=== PATIENT | female | born 1935 | race African-American/Black ===

== ENCOUNTER 2017-09-11 11:12 | Inpatient (IN) | payer MEDICARE ==
[~2017-09-11] VITALS: Ht 167.6 cm; Wt 69.6 kg
[~2017-09-11 11:12] MED LIST: DOCU100C28 PO; FAMO-63 PO; HYDR-2678 PO; HYDR25TA PO; METO100T7 PO; PRED20TA PO
[2017-09-11 12:32] LABS: BASO # 0.1 x10^3/uL (0.0-0.2); BASO % 1 % (0-3); EOS % 5 % (0-3); HEMOGLOBIN 12.5 g/dL (12.0-15.5); LYMPH # 1.7 x10^3/uL (1.0-4.8); LYMPH % 28 % (24-48); MEAN CORPUSCULAR HEMOGLOBIN 31 pg (25-35); MEAN CORPUSCULAR HGB CONC 33 g/dL (31-37); MEAN CORPUSCULAR VOLUME 96 fL (79-100); MONO % 12 % (0-9); NEUT % 54 % (31-73); PLATELET COUNT 378 x10^3/uL (140-400); RED BLOOD COUNT 3.98 x10^6/uL (3.50-5.40); RED CELL DISTRIBUTION WIDTH 14.6 % (11.5-14.5); WHITE BLOOD COUNT 6.2 x10^3/uL (4.0-11.0)
[2017-09-11 12:40] LABS: CALCIUM 8.9 mg/dL (8.5-10.1); CREATININE 0.9 mg/dL (0.6-1.0); GFR 72.7; POTASSIUM 3.7 mmol/L (3.5-5.1)
[2017-09-11 12:55] LABS: ALBUMIN 3.2 g/dL (3.4-5.0); ALBUMIN/GLOBULIN RATIO 0.7 (1.0-1.7); TOTAL BILIRUBIN 0.3 mg/dL (0.2-1.0); TOTAL PROTEIN 7.6 g/dL (6.4-8.2)
[2017-09-11] MEDS ORDERED: CLINDAMYCIN 300 MG IV ONE (13:45)
[2017-09-11] MEDS ORDERED: ONDANSETRON PF 4 MG/2 ML VIAL. IV PRN (14:15)
[2017-09-11] MEDS ORDERED: MORPHINE SULFATE 2 MG/ML DISP.SYRIN. IV PRN (14:15)
[2017-09-11 15:00] VITALS: BP 186/66
--- NOTE | 2017-09-11 17:06 | PHYS DOC ---
Past Medical History Past Medical History: Cancer, Hypertension Additional Past Medical Histor: BREAST CA Past Surgical History: Other Additional Past Surgical Histo: R MASTECTOMY Alcohol Use: None Drug Use: None Adult General Chief Complaint Chief Complaint: BURN/SMOKE INHALATION HPI HPI Patient is a 82 year old female who presents with a large burn area to the dorsal aspect of her right foot. She was boiling water on Thanksgiving when the pot of boiling water dropped spilling boiling liquid onto her foot. She was seen by her primary care provider who described a topical ointment as well as an antibiotic. The patient states that she is unsure of what the antibiotic is that she has been taking. She does say that it does upset her stomach. The wound has been draining and crusting. She is having pain when she steps down and applies pressure to her foot now. Review of Systems Review of Systems Constitutional: Denies fever or chills [] Respiratory: Denies cough or shortness of breath [] Cardiovascular: No additional information not addressed in HPI [] Musculoskeletal: Denies back pain or joint pain [] Integument: See history of present illness Neurologic: Denies headache, focal weakness or sensory changes [] Endocrine: Denies polyuria or polydipsia [] All other systems were reviewed and found to be within normal limits, except as documented in this note. Allergies Allergies Allergies Coded Allergies Type Severity Reaction Last Updated Verified aspirin Allergy Mild vomit 05/29/15 No Physical Exam Physical Exam Constitutional: Well developed, well nourished, no acute distress, non-toxic appearance. [] Cardiovascular:Heart rate regular rhythm, no murmur [] Lungs & Thorax: Bilateral breath sounds clear to auscultation [] Abdomen: Bowel sounds normal, soft, no tenderness, no masses, no pulsatile masses. [] Skin: 3.5 cm x 1.5 cm wound to the dorsal aspect of the right foot with crusting , erythema and mild edema, the proximal wound is reddened with some drainage, there is significant tissue loss with some granulation tissue starting to form Extremities: No tenderness, no cyanosis, no clubbing, ROM intact, no edema. [] Neurologic: Alert and oriented X 3, normal motor function, normal sensory function, no focal deficits noted. [] Psychologic: Affect normal, judgement normal, mood normal. [] Current Patient Data Vital Signs Vital Signs Date Time Temp Pulse Resp B/P (MAP) Pulse Ox O2 Delivery O2 Flow Rate FiO2 09/11/17 12:14 78 18 168/70 (102) 99 Room Air 09/11/17 11:31 97.6 97.6 Lab Values Laboratory Tests Test 09/11/17 12:20 White Blood Count 6.2 x10^3/uL (4.0-11.0) Red Blood Count 3.98 x10^6/uL (3.50-5.40) Hemoglobin 12.5 g/dL (12.0-15.5) Hematocrit 38.0 % (36.0-47.0) Mean Corpuscular Volume 96 fL (79-100) Mean Corpuscular Hemoglobin 31 pg (25-35) Mean Corpuscular Hemoglobin Concent 33 g/dL (31-37) Red Cell Distribution Width 14.6 % (11.5-14.5) H Platelet Count 378 x10^3/uL (140-400) Neutrophils (%) (Auto) 54 % (31-73) Lymphocytes (%) (Auto) 28 % (24-48) Monocytes (%) (Auto) 12 % (0-9) H Eosinophils (%) (Auto) 5 % (0-3) H Basophils (%) (Auto) 1 % (0-3) Neutrophils # (Auto) 3.4 x10^3uL (1.8-7.7) Lymphocytes # (Auto) 1.7 x10^3/uL (1.0-4.8) Monocytes # (Auto) 0.7 x10^3/uL (0.0-1.1) Eosinophils # (Auto) 0.3 x10^3/uL (0.0-0.7) Basophils # (Auto) 0.1 x10^3/uL (0.0-0.2) Sodium Level 141 mmol/L (136-145) Potassium Level 3.7 mmol/L (3.5-5.1) Chloride Level 103 mmol/L (98-107) Carbon Dioxide Level 31 mmol/L (21-32) Anion Gap 7 (6-14) Blood Urea Nitrogen 12 mg/dL (7-20) Creatinine 0.9 mg/dL (0.6-1.0) Estimated GFR (Cockcroft-Gault) 72.7 BUN/Creatinine Ratio 13 (6-20) Glucose Level 95 mg/dL (70-99) Calcium Level 8.9 mg/dL (8.5-10.1) Total Bilirubin 0.3 mg/dL (0.2-1.0) Aspartate Amino Transferase (AST) 20 U/L (15-37) Alanine Aminotransferase (ALT) 18 U/L (14-59) Alkaline Phosphatase 108 U/L (46-116) Total Protein 7.6 g/dL (6.4-8.2) Albumin 3.2 g/dL (3.4-5.0) L Albumin/Globulin Ratio 0.7 (1.0-1.7) L Laboratory Tests 09/11/17 12:20 Laboratory Tests 09/11/17 12:20 Microbiology 09/11/17 Gram Stain - Final, Complete EKG EKG [] Radiology/Procedures Radiology/Procedures [] Course & Med Decision Making Course & Med Decision Making Pertinent Labs and Imaging studies reviewed. (See chart for details) []1. Burn Patient is being admitted to Dr. Davis for further evaluation and treatment of this burn. She was given IV antibiotics in the emergency department to begin her treatment. Dragon Disclaimer Dragon Disclaimer This electronic medical record was generated, in whole or in part, using a voice recognition dictation system. Departure Departure Impression: Primary Impression: Burn Disposition: 09 ADMITTED INPATIENT Condition: STABLE Referrals: ROSELIA DAVIS MD (PCP) Additional Instructions: Patient has been admitted for further inpatient evaluation and treatment of this burn. CORY ZAYAS APRN Sep 11, 2017 17:06
[2017-09-11 17:16] VITALS: BP 172/80
[2017-09-11] MEDS: hydrALAZINE 10 MG TABLET PO PRN (17:21)
[2017-09-11 19:00] VITALS: BP 149/65
[2017-09-11 23:30] VITALS: BP 152/60
[2017-09-12 03:00] VITALS: BP 136/88
[2017-09-12] MEDS: CLINDAMYCIN 300 MG IV SCH ×3 (06:06→21:06)
[2017-09-12 07:00] VITALS: BP 159/65
[2017-09-12] MEDS: FAMOTIDINE 20 MG TABLET. PO SCH (08:48)
[2017-09-12] MEDS: hydrALAZINE 10 MG TABLET PO PRN ×3 (08:48→21:06)
[2017-09-12] MEDS: DOCUSATE SODIUM 100 MG CAPSULE. PO SCH ×2 (08:48→21:04)
[2017-09-12] MEDS: hydrOXYzine PAMOATE 25 MG CAPSULE PO SCH ×3 (08:49→21:12)
[2017-09-12] MEDS: METOPROLOL TART IMMED RELEASE 50 MG TABLET. PO SCH ×2 (08:49→21:04)
--- NOTE | 2017-09-12 10:15 | PDOC ---
Provider Note Provider Note Pt seen.H&P dictated. #[id number] ROSELIA FLOYD MD Sep 12, 2017 10:15
--- NOTE | 2017-09-12 10:28 | HP ---
ADMIT DATE: 09/11/2017 LOCATION: 648. REASON FOR ADMISSION TO THE HOSPITAL: Grease burn to the right foot with cellulitis and worsening ulceration in the right foot with swelling. HISTORY OF PRESENT ILLNESS: The patient is an 82-year-old female with history of sarcoidosis and she had been cooking over weekend and then she had a grease burn, oil on the right foot, came to the office, was seen, was given Xeroform and in the meantime, this was last week, her leg was more swollen, the skin was peeling off more and more pain. Came to the Emergency Room, was admitted with possible cellulitis, edema and not improving, and was given clindamycin. Wound care was consulted, may need surgical debridement. PAST MEDICAL HISTORY: History of sarcoidosis, hypertension, anxiety, chronic pain. PAST SURGICAL HISTORY: Had a lung biopsy, sarcoidosis very indolent. ALLERGIES: ASPIRIN CAUSES HIVES. MEDICATIONS AT HOME: Colace, Pepcid, hydroxyzine, metoprolol and Percocet for pain. PERSONAL HISTORY: Denies smoking, alcohol, drug abuse. SOCIAL HISTORY: Lives at home with her . FAMILY HISTORY: Unremarkable. REVIEW OF SYSTEMS: CARDIAC: No chest pain. LUNGS: No cough, sputum. GASTROINTESTINAL: No nausea. EXTREMITIES: Has pain in right foot, swelling and got progressive worsening. PHYSICAL EXAMINATION: GENERAL: Pleasant, not in any distress. VITAL SIGNS: Temperature 97, pulse 87, respirations 18, blood pressure 167/80, 99% on room air. HEENT: Head is atraumatic. Pupils equal. Oral cavity, no teeth. NECK: Supple. Thyroid not enlarged. JVD not elevated. CHEST: Symmetrical. CARDIOVASCULAR: S1, S2. LUNGS: Clear to auscultation. ABDOMEN: Soft, bowel sounds present, no mass palpable. EXTERNAL GENITALIA: No Pascal. RECTAL: Deferred. EXTREMITIES: Right leg is swollen from the foot up to below the knee, has extensive skin ulceration with necrosis and some granulation tissue dorsal aspect of the right foot, covering most of the dorsal aspect of the foot. Left leg, no swelling. FINAL IMPRESSION: 1. Hot grease burn of the right foot with ulceration. 2. Failure of outpatient improvement. 3. Possible cellulitis. 4. Sarcoidosis. 5. Edema, right leg, rule out deep venous thrombosis. PLAN: At this time, was admit to hospital. Venous Doppler, Wound Care consult, needs surgical debridement, IV clindamycin and see how the patient's condition improves, elevation, compression wraps. ROSELIA FLOYD MD DR: SANDER/corey JOB#: [id number] / [id number]
[2017-09-12 10:49] VITALS: BP 144/78
[2017-09-12] MEDS: silver sulfADIAZINE 1% CREAM 25GM TUBE. TP SCH ×2 (11:00→21:06)
--- NOTE | 2017-09-12 13:36 | RAD ---
Clinical Indication: Right lower extremity swelling Technique: Study is dated September 12, 2017. Grayscale, color flow and spectral waveform analysis was performed of the right lower extremity with and without compression. Findings: There is normal compressibility of all visualized vein segments. No evidence of DVT is present on grayscale or color images. There is normal phasicity of waveform. There is normal augmentation. Impression: No evidence of deep vein thrombosis.
--- NOTE | 2017-09-12 14:16 | PDOC2 ---
CONSULT Date of Consult Date of Consult DATE: 09/12/17 TIME: 14:04 Reason for Consult Reason for Consult: Right foot burn Referring Physician Referring Physician: Dr. adames Identification/Chief Complaint Chief Complaint Right foot burn with associated cellulitis prompting hospitalization Problems: Source Source: Chart review, Patient History of Present Illness Reason for Visit: This is a very pleasant 82-year-old lady who sustained martino to the dorsum and medial aspect of the right foot roughly 2 weeks ago. This was result of hot grease. She developed increased pain, edema and concern for cellulitis and was subsequent admitted through the emergency department. She does not have significant history of ulceration or wounding. She does not report numbness, paresthesias or motor weakness in the affected distal extremity. Past Medical History Cardiovascular: HTN Past Surgical History Past Surgical History: Other (lung biopsy) Family History Family History: Other Social History ALCOHOL: none Drugs: None Lives: with Family Current Problem List Problem List Second-degree burn roughly 3% body surface area left foot Current Medications Current Medications Current Medications Clindamycin Phosphate 50 ml @ 100 mls/hr 1X ONCE IV Last administered on 14:54; Start 09/11/17 at 13:45; Stop 09/11/17 at 14:14; Status DC Ondansetron HCl (Zofran) 4 mg PRN Q8HRS PRN IV NAUSEA/VOMITING; Start at 14:15; Stop 09/12/17 at 14:14 Morphine Sulfate 2 mg PRN Q2HR PRN IV PAIN; Start 09/11/17 at 14:15; Stop 09/17 at 14:14 Hydralazine HCl (Apresoline) 10 mg PRN Q6HRS PRN PO ELEVATED BP, SEE COMMENTS Last administered on 09/12/17 08:48; Start 09/11/17 at 15:45 Docusate Sodium (Colace) 100 mg BID PO Last administered on 09/12/17 08:48; Start 09/12/17 at 09:00 Famotidine (Pepcid) 20 mg DAILY PO Last administered on 09/12/17 08:48; Start 09/12/17 at 09:00 Hydroxyzine Pamoate (Vistaril) 25 mg TID PO ; Start 09/12/17 at 09:00 Metoprolol Tartrate (Lopressor) 100 mg BID PO ; Start 09/12/17 at 09:00 Clindamycin Phosphate 50 ml @ 100 mls/hr Q8HRS IV Last administered on 06:06; Start 09/12/17 at 06:00 Silver Sulfadiazine (Silvadene) 1 rashmi BID TP Last administered on 09/12/17t 11 :00; Start 09/12/17 at 11:00 Acetaminophen/ Hydrocodone Bitart (Lortab 5/325) 1 tab PRN Q4HRS PRN PO PAIN; Start 09/12/17 at 10:15 Lactobacillus Rhamnosus (Culturelle) 1 cap BID PO ; Start 09/12/17 at 21:00 Active Scripts Active Hydroxyzine Hcl 25 Mg Tablet 1 Tab PO TID Pepcid (Famotidine) 20 Mg Tablet 20 Mg PO BID 5 Days Prednisone 20 Mg Tablet 2 Tab PO DAILY Docusate Sodium 100 Mg Capsule 1 Cap PO BID Reported Metoprolol Tartrate 100 Mg Tablet 1 Tab PO BID Allergies Allergies: Coded Allergies: aspirin (Unverified Allergy, Mild, vomit, 05/29/15) Pt states she vomits when she takes asprin ROS Musculoskeletal: Yes Joint Stiffness (large joint arthralgias are described) Physical Exam General: Alert, Oriented X3, Cooperative, No acute distress HEENT: Atraumatic, PERRLA, EOMI, Mucous membr. moist/pink Lungs: Clear to auscultation, Normal air movement Heart: Regular rate Abdomen: Soft, No tenderness Extremities: No clubbing, No cyanosis, No edema, Other (Quanta Lj is 1.07) Neuro: Normal speech, Sensation intact Psych/Mental Status: Mental status NL, Mood NL MUSCULOSKELETAL: Not examined Vitals VITALS Vital Signs Date Time Temp Pulse Resp B/P (MAP) Pulse Ox O2 Delivery O2 Flow Rate FiO2 09/12/17 10:49 98.0 99 16 144/78 (100) 96 Room Air 98.0 Labs Labs Laboratory Tests Test 09/11/17 12:20 White Blood Count 6.2 x10^3/uL (4.0-11.0) Red Blood Count 3.98 x10^6/uL (3.50-5.40) Hemoglobin 12.5 g/dL (12.0-15.5) Hematocrit 38.0 % (36.0-47.0) Mean Corpuscular Volume 96 fL (79-100) Mean Corpuscular Hemoglobin 31 pg (25-35) Mean Corpuscular Hemoglobin Concent 33 g/dL (31-37) Red Cell Distribution Width 14.6 % (11.5-14.5) Platelet Count 378 x10^3/uL (140-400) Neutrophils (%) (Auto) 54 % (31-73) Lymphocytes (%) (Auto) 28 % (24-48) Monocytes (%) (Auto) 12 % (0-9) Eosinophils (%) (Auto) 5 % (0-3) Basophils (%) (Auto) 1 % (0-3) Neutrophils # (Auto) 3.4 x10^3uL (1.8-7.7) Lymphocytes # (Auto) 1.7 x10^3/uL (1.0-4.8) Monocytes # (Auto) 0.7 x10^3/uL (0.0-1.1) Eosinophils # (Auto) 0.3 x10^3/uL (0.0-0.7) Basophils # (Auto) 0.1 x10^3/uL (0.0-0.2) Sodium Level 141 mmol/L (136-145) Potassium Level 3.7 mmol/L (3.5-5.1) Chloride Level 103 mmol/L (98-107) Carbon Dioxide Level 31 mmol/L (21-32) Anion Gap 7 (6-14) Blood Urea Nitrogen 12 mg/dL (7-20) Creatinine 0.9 mg/dL (0.6-1.0) Estimated GFR (Cockcroft-Gault) 72.7 BUN/Creatinine Ratio 13 (6-20) Glucose Level 95 mg/dL (70-99) Calcium Level 8.9 mg/dL (8.5-10.1) Total Bilirubin 0.3 mg/dL (0.2-1.0) Aspartate Amino Transf (AST/SGOT) 20 U/L (15-37) Alanine Aminotransferase (ALT/SGPT) 18 U/L (14-59) Alkaline Phosphatase 108 U/L (46-116) Total Protein 7.6 g/dL (6.4-8.2) Albumin 3.2 g/dL (3.4-5.0) Albumin/Globulin Ratio 0.7 (1.0-1.7) Assessment/Plan Assessment/Plan Second degree burn to dorsum of right foot of roughly 3% body surface area. Debridement note: Following informed consent of the patient and utilizing topical lidocaine application anesthesia, the patient underwent debridement of area of second-degree burn. Total area debrided was roughly 56.7 cm. This required the removal of nonviable tissue only. This utilized forceps and scissors. This was well tolerated by the patient. Slough was then removed utilizing 15 blade scalpel. This constituted a selective, non-surgical debridement of nonviable tissue. Following debridement application of silver sulfadiazine ointment was utilized. Recommendation: Silvadene ointment can be utilized on a 2 time daily basis. We will be happy to follow up with the patient in clinic if needed. Silvadene will likely be best utilized in the immediate hospitalization. With contact layer thereafter on an every 2-3 day basis. Thank you very much for allowing us to participate in Mrs. Taveras's care. MARTHA BAPTISTE DO Sep 12, 2017 14:16
[2017-09-12 15:00] VITALS: BP 173/75
[2017-09-12 19:00] VITALS: BP 137/62
[2017-09-12] MEDS: HYDROcodone/APAP 5/325MG 1 TAB TABLET PO PRN (21:05)
[2017-09-12] MEDS: LACTOBACILLUS RHAMNOSUS GG 1 CAPSULE. PO SCH (21:06)
[2017-09-12 23:06] VITALS: BP 117/60
[2017-09-13 03:00] VITALS: BP 148/89
[2017-09-13] MEDS: CLINDAMYCIN 300 MG IV SCH (05:43)
[2017-09-13 07:00] VITALS: BP 148/94
[2017-09-13] MEDS: silver sulfADIAZINE 1% CREAM 25GM TUBE. TP SCH (09:00)
[2017-09-13] MEDS: hydrOXYzine PAMOATE 25 MG CAPSULE PO SCH (09:01)
[2017-09-13] MEDS: FAMOTIDINE 20 MG TABLET. PO SCH (09:01)
[2017-09-13] MEDS: LACTOBACILLUS RHAMNOSUS GG 1 CAPSULE. PO SCH (09:01)
[2017-09-13] MEDS: DOCUSATE SODIUM 100 MG CAPSULE. PO SCH (09:01)
[2017-09-13] MEDS: METOPROLOL TART IMMED RELEASE 50 MG TABLET. PO SCH (09:02)
[2017-09-13] MEDS: HYDROcodone/APAP 5/325MG 1 TAB TABLET PO PRN (09:05)
--- NOTE | 2017-09-13 09:40 | PDOC ---
PROGRESS NOTES Subjective Subjective feels better ,wanting to go home Objective Objective Vital Signs Date Time Temp Pulse Resp B/P (MAP) Pulse Ox O2 Delivery O2 Flow Rate FiO2 09/13/17 09:05 97 Room Air 09/13/17 09:02 80 148/94 09/13/17 07:00 98.2 18 98.2 Intake and Output 09/13/17 07:00 Intake Total 1000 ml Output Total 1250 ml Balance -250 ml Intake Oral 1000 ml Output Urine Total 1250 ml # Bowel Movements 1 Physical Exam Abdomen: Soft, No tenderness Heart: Regular rate Extremities: No clubbing, No cyanosis, No edema, Other (Quanta Lj is 1.07) General: Alert, Oriented X3, Cooperative, No acute distress HEENT: Atraumatic, PERRLA, EOMI, Mucous membr. moist/pink Lungs: Clear to auscultation, Normal air movement MUSCULOSKELETAL: Not examined Neuro: Normal speech, Sensation intact Psych/Mental Status: Mental status NL, Mood NL COMMENT rt foot burn ulcer dorsal aspect Assessment Assessment FINAL IMPRESSION: 1. Hot grease burn of the right foot with ulceration. 2. Failure of outpatient improvement. 3. Possible cellulitis. 4. Sarcoidosis. 5. Edema, right leg, rule out deep venous thrombosis. PLAN: bedside debridement done yesterday, venous doppler neg for dvt. labs good. d/c home with home health for dressing f/u wound care ctr. po keflex for 1 week and Silvadene for wound care. At this time, was admit to hospital. Venous Doppler, Wound Care consult, needs surgical debridement, IV clindamycin and see how the patient's condition improves, elevation, compression wraps. Problems: Comment Review of Relevant I have reviewed the following items marisa (where applicable) has been applied. Labs Microbiology 09/11/17 Gram Stain - Final, Complete Medications Current Medications Acetaminophen/ Hydrocodone Bitart (Lortab 5/325) 1 tab PRN Q4HRS PRN PO PAIN Last administered on 09/13/17 09:05; Start 09/12/17 at 10:15 Lactobacillus Rhamnosus (Culturelle) 1 cap BID PO Last administered on 09:01; Start 09/12/17 at 21:00 Silver Sulfadiazine (Silvadene) 1 rashmi BID TP Last administered on 12/12/17at 21 :06; Start 09/12/17 at 11:00 Vitals/I & O Vital Sign - Last 24 Hours 09/12/17 09/12/17 09/12/17 09/12/17 10:49 15:00 16:45 19:00 Temp 98.0 98.0 98.6 98.0 98.0 98.6 Pulse 99 88 92 110 Resp 16 16 17 B/P (MAP) 144/78 (100) 173/75 (107) 189/89 137/62 (87) Pulse Ox 96 99 96 O2 Delivery Room Air Room Air Room Air 09/12/17 09/12/17 09/12/17 09/12/17 19:00 21:04 21:05 21:06 Pulse 110 110 B/P (MAP) 137/62 137/62 Pulse Ox 96 O2 Delivery Room Air Room Air 09/12/17 09/12/17 09/13/17 09/13/17 21:58 23:06 03:00 07:00 Temp 98.8 98.4 98.2 98.8 98.4 98.2 Pulse 78 78 80 Resp 18 18 18 B/P (MAP) 117/60 (79) 148/89 (108) 148/94 (112) Pulse Ox 96 95 98 97 O2 Delivery Room Air Room Air Room Air Room Air 09/13/17 09/13/17 09:02 09:05 Pulse 80 B/P (MAP) 148/94 Pulse Ox 97 O2 Delivery Room Air Intake and Output 09/12/17 09/12/17 09/13/17 15:00 23:00 07:00 Intake Total 500 ml 500 ml Output Total 900 ml 350 ml Balance -400 ml 150 ml ROSELIA FLOYD MD Sep 13, 2017 09:40
[2017-09-13] MEDS ORDERED: CEPH-264 PO (09:43)
[2017-09-13] MEDS ORDERED: SILV25CR7 TP (09:43)
[2017-09-13 11:00] VITALS: BP 143/65
--- NOTE | 2017-09-14 15:34 | PDOC ---
Provider Note Provider Note Discharge summary dictated. #[id number] ROSELIA FLOYD MD Sep 14, 2017 15:34
--- NOTE | 2017-09-14 18:37 | DS ---
DATE OF DISCHARGE: 09/13/2017 CONSULTATION: Dr. Ron [facility]. PROCEDURE DONE: Bedside debridement of the wound, right foot. COMPLICATIONS NOTED: None. HOSPITAL COURSE: The patient is an 82-year-old female. Over the weekend, she had a hot grease burn over the right foot and the patient has noticed more pain and swelling, came to the Emergency Room. Venous Doppler was negative for DVT. Had a scalding burn on the right foot with some ulceration and necrosis. Wound Care was consulted. A bedside debridement was done, was put on Silvadene and she was discharged. FINAL DIAGNOSES: 1. Hot grease burn to right foot. 2. Debridement of the ulcer was done. 3. Right leg swelling, negative for deep venous thrombosis. 4. Chronic sarcoidosis, stable. 5. Hypertension, stable. DISPOSITION: Home with home health and Silvadene. Follow up with the [facility]. ROSELIA FLOYD MD DR: SANDER/corey JOB#: [id number] / [id number]
== END 2017-09-13 16:07 | disposition home health service (06) | DRG 935 ==
LOC: ER 11:12 → 6 SOUTH 13:33
PROVIDERS: ADMIT Internal Medicine; ATTEND Internal Medicine
PROC: 0JBQ0ZZ Excision of Right Foot Subcutaneous Tissue and Fascia, Open Approach (ICD-10-PCS; principal; 2017-09-11)
DX: T25.221A Burn of second degree of right foot, initial encounter (principal); L03.115 Cellulitis of right lower limb; L97.519 Non-pressure chronic ulcer of other part of right foot with unspecified severity; J70.5 Respiratory conditions due to smoke inhalation; T31.0 Burns involving less than 10% of body surface; D86.9 Sarcoidosis, unspecified; F41.9 Anxiety disorder, unspecified; G89.29 Other chronic pain; I10 Essential (primary) hypertension; T59.811A Toxic effect of smoke, accidental (unintentional), initial encounter; X10.2XXA Contact with fats and cooking oils, initial encounter; Y93.G3 Activity, cooking and baking; Z85.3 Personal history of malignant neoplasm of breast; Z88.8 Allergy status to other drugs, medicaments and biological substances; Y92.090 Kitchen in other non-institutional residence as the place of occurrence of the external cause; Y99.8 Other external cause status; Z90.11 Acquired absence of right breast and nipple
CPT/HCPCS: 36415; 80053; 85025; 87071; 87075; 87205; 93971; J3490; Q0177; 99285-25

== ENCOUNTER 2018-03-26 11:41 | Emergency (ER) | payer OTHER ==
[2018-03-26 12:54] LABS: ADD MAN DIFF? NO
[2018-03-26 13:00] LABS: BASO % 1 % (0-3); EOS # 0.1 x10^3/uL (0.0-0.7); EOS % 2 % (0-3); HEMATOCRIT 40.8 % (36.0-47.0); HEMOGLOBIN 13.9 g/dL (12.0-15.5); LYMPH # 1.8 x10^3/uL (1.0-4.8); LYMPH % 42 % (24-48); MEAN CORPUSCULAR HEMOGLOBIN 32 pg (25-35); MEAN CORPUSCULAR HGB CONC 34 g/dL (31-37); MEAN CORPUSCULAR VOLUME 95 fL (79-100); MONO # 0.5 x10^3/uL (0.0-1.1); MONO % 13 % (0-9); NEUT # 1.8 x10^3uL (1.8-7.7); NEUT % 43 % (31-73); PLATELET COUNT 260 x10^3/uL (140-400); RED BLOOD COUNT 4.32 x10^6/uL (3.50-5.40); RED CELL DISTRIBUTION WIDTH 13.4 % (11.5-14.5); WHITE BLOOD COUNT 4.2 x10^3/uL (4.0-11.0)
[2018-03-26] MEDS: IOHEXOL 300 MG/ML 100ML VIAL. IV (13:00)
[2018-03-26] MEDS ORDERED: CONTRAST GIVEN. MC (13:00)
[2018-03-26] MEDS: IOHEXOL 240 MG/ML 50ML VIAL. PO (13:00)
[2018-03-26 13:06] LABS: ANION GAP 4 (6-14); BLOOD UREA NITROGEN 22 mg/dL (7-20); BUN/CREATININE RATIO 18 (6-20); CALCIUM 9.5 mg/dL (8.5-10.1); CARBON DIOXIDE 36 mmol/L (21-32); CHLORIDE 94 mmol/L (98-107); CREATININE 1.2 mg/dL (0.6-1.0); GLUCOSE 119 mg/dL (70-99); POTASSIUM 4.3 mmol/L (3.5-5.1); SODIUM 134 mmol/L (136-145)
[2018-03-26 13:11] LABS: ALBUMIN 3.9 g/dL (3.4-5.0); ALBUMIN/GLOBULIN RATIO 1.2 (1.0-1.7); ALK PHOS 75 U/L (46-116); ALT (SGPT) 18 U/L (14-59); AST (SGOT) 21 U/L (15-37); LIPASE 168 U/L (73-393); MAGNESIUM 2.1 mg/dL (1.8-2.4); TOTAL BILIRUBIN 0.4 mg/dL (0.2-1.0); TOTAL PROTEIN 7.1 g/dL (6.4-8.2)
[2018-03-26] MEDS: IV NORMAL SALINE 500ML BAG 500 ML IV (13:15)
[2018-03-26 13:17] LABS: NT-PRO BNP 28 pg/mL (0-449)
[2018-03-26 13:18] LABS: FREE T4 1.18 ng/dL (0.76-1.46); TROPONINI < 0.017 ng/mL (0.000-0.055)
[2018-03-26 13:18] LABS: THYROID STIM HORMONE (TSH) 0.902 uIU/mL (0.358-3.74)
[2018-03-26 13:19] LABS: BILIRUBIN,URINE MODERATE (NEG); CLARITY,URINE CLEAR; COLOR,URINE YELLOW; GLUCOSE,URINE NEGATIVE (NEG); NITRITE,URINE NEGATIVE (NEG); PROTEIN,URINE NEGATIVE (NEG-TRACE)
[2018-03-26 13:38] LABS: BACTERIA,URINE 0 /HPF (0-FEW); HYALINE CASTS, URINE MODERATE /HPF; RBC,URINE 0 /HPF (0-2)
[2018-03-26] MEDS: IV NORMAL SALINE 1000ML BAG 1,000 ML IV (14:38)
== END 2018-03-26 15:38 | disposition home or self-care (01) ==
LOC: ER 11:41
DX: K29.70 Gastritis, unspecified, without bleeding (principal); N39.0 Urinary tract infection, site not specified; R42 Dizziness and giddiness; R53.83 Other fatigue
CPT/HCPCS: 36415; 71260; 74177; 80053; 81001; 83690; 83735; 83880; 84439; 84443; 84484; 85025; 87086; 93005; 96360; 96361; 99285-25; J7030; J7040; Q9966; Q9967

== ENCOUNTER 2018-04-10 10:55 | Emergency (ER) | payer OTHER ==
[2018-04-10 11:56] LABS: ADD MAN DIFF? NO
[2018-04-10 12:01] LABS: BASO % 1 % (0-3); EOS # 0.1 x10^3/uL (0.0-0.7); EOS % 3 % (0-3); HEMATOCRIT 40.3 % (36.0-47.0); HEMOGLOBIN 13.8 g/dL (12.0-15.5); LYMPH # 1.3 x10^3/uL (1.0-4.8); LYMPH % 35 % (24-48); MEAN CORPUSCULAR HEMOGLOBIN 32 pg (25-35); MEAN CORPUSCULAR HGB CONC 34 g/dL (31-37); MEAN CORPUSCULAR VOLUME 94 fL (79-100); MONO # 0.4 x10^3/uL (0.0-1.1); MONO % 12 % (0-9); NEUT # 1.8 x10^3uL (1.8-7.7); NEUT % 49 % (31-73); PLATELET COUNT 308 x10^3/uL (140-400); RED BLOOD COUNT 4.28 x10^6/uL (3.50-5.40); RED CELL DISTRIBUTION WIDTH 13.6 % (11.5-14.5); WHITE BLOOD COUNT 3.6 x10^3/uL (4.0-11.0)
[2018-04-10 12:03] LABS: BILIRUBIN,URINE SMALL (NEG); CLARITY,URINE CLEAR; COLOR,URINE YELLOW; GLUCOSE,URINE NEGATIVE (NEG); NITRITE,URINE NEGATIVE (NEG); PROTEIN,URINE NEGATIVE (NEG-TRACE)
[2018-04-10 12:15] LABS: PROTHROMBIN TIME PATIENT 12.5 SEC (11.7-14.0)
[2018-04-10 12:22] LABS: ANION GAP 9 (6-14); BLOOD UREA NITROGEN 14 mg/dL (7-20); BUN/CREATININE RATIO 13 (6-20); CARBON DIOXIDE 30 mmol/L (21-32); CHLORIDE 89 mmol/L (98-107); CREATININE 1.1 mg/dL (0.6-1.0); GFR 57.5; GLUCOSE 92 mg/dL (70-99); POTASSIUM 3.6 mmol/L (3.5-5.1); SODIUM 128 mmol/L (136-145)
[2018-04-10 12:26] LABS: TROPONINI < 0.017 ng/mL (0.000-0.055)
[2018-04-10 12:27] LABS: ALBUMIN 3.8 g/dL (3.4-5.0); ALBUMIN/GLOBULIN RATIO 1.1 (1.0-1.7); ALK PHOS 58 U/L (46-116); ALT (SGPT) 20 U/L (14-59); AST (SGOT) 21 U/L (15-37); LIPASE 152 U/L (73-393); MAGNESIUM 1.9 mg/dL (1.8-2.4); TOTAL BILIRUBIN 0.4 mg/dL (0.2-1.0); TOTAL PROTEIN 7.3 g/dL (6.4-8.2)
[2018-04-10 12:29] LABS: THYROID STIM HORMONE (TSH) 2.515 uIU/mL (0.358-3.74)
[2018-04-10 12:31] LABS: BACTERIA,URINE FEW /HPF (0-FEW); HYALINE CASTS, URINE FEW /HPF; SQUAMOUS EPITHELIAL CELL,UR FEW /LPF
[2018-04-10 12:33] LABS: CKMB INDEX 1.4 % (0-4); CREATINE KINASE 72 U/L (26-192)
[2018-04-10 12:33] LABS: NT-PRO BNP 23 pg/mL (0-449)
[2018-04-10 12:40] LABS: LACTIC ACID 1.7 mmol/L (0.4-2.0)
[2018-04-10] MEDS: IV NORMAL SALINE 500ML BAG 500 ML IV (13:46)
== END 2018-04-10 15:00 | disposition home or self-care (01) ==
LOC: ER 10:55
DX: N39.0 Urinary tract infection, site not specified (principal); E87.1 Hypo-osmolality and hyponatremia; R53.1 Weakness; R63.0 Anorexia; R63.4 Abnormal weight loss; I10 Essential (primary) hypertension; Z68.21 Body mass index [BMI] 21.0-21.9, adult
CPT/HCPCS: 36415; 71046; 80053; 81001; 82553; 83605; 83690; 83735; 83880; 84443; 84484; 85025; 85610; 87086; 93005; 96365; 99285; 99285-25; J0690; J7040

== ENCOUNTER 2018-04-12 13:39 | Inpatient (IN) | payer OTHER ==
[2018-04-12] MEDS: IV NORMAL SALINE 1000ML BAG 1,000 ML IV ×3 (14:15→23:00)
[2018-04-12 14:21] LABS: ADD MAN DIFF? NO
[2018-04-12 14:30] LABS: BASO % 1 % (0-3); EOS # 0.1 x10^3/uL (0.0-0.7); EOS % 3 % (0-3); HEMATOCRIT 37.2 % (36.0-47.0); HEMOGLOBIN 12.6 g/dL (12.0-15.5); LYMPH # 1.5 x10^3/uL (1.0-4.8); LYMPH % 39 % (24-48); MEAN CORPUSCULAR HEMOGLOBIN 32 pg (25-35); MEAN CORPUSCULAR HGB CONC 34 g/dL (31-37); MEAN CORPUSCULAR VOLUME 94 fL (79-100); MONO # 0.5 x10^3/uL (0.0-1.1); MONO % 14 % (0-9); NEUT # 1.7 x10^3uL (1.8-7.7); NEUT % 44 % (31-73); PLATELET COUNT 311 x10^3/uL (140-400); RED BLOOD COUNT 3.97 x10^6/uL (3.50-5.40); RED CELL DISTRIBUTION WIDTH 13.7 % (11.5-14.5); WHITE BLOOD COUNT 3.8 x10^3/uL (4.0-11.0)
[2018-04-12 14:42] LABS: ANION GAP 9 (6-14); BLOOD UREA NITROGEN 10 mg/dL (7-20); BUN/CREATININE RATIO 10 (6-20); CARBON DIOXIDE 30 mmol/L (21-32); CHLORIDE 93 mmol/L (98-107); GFR 64.2; GLUCOSE 87 mg/dL (70-99); SODIUM 132 mmol/L (136-145)
[2018-04-12 14:48] LABS: ALBUMIN 3.7 g/dL (3.4-5.0); ALBUMIN/GLOBULIN RATIO 1.1 (1.0-1.7); ALK PHOS 52 U/L (46-116); ALT (SGPT) 18 U/L (14-59); AST (SGOT) 23 U/L (15-37); TOTAL BILIRUBIN 0.4 mg/dL (0.2-1.0)
[2018-04-12 14:50] LABS: TROPONINI < 0.017 ng/mL (0.000-0.055)
[2018-04-12 14:55] LABS: THYROID STIM HORMONE (TSH) 1.985 uIU/mL (0.358-3.74)
[2018-04-12 14:56] LABS: LACTIC ACID 1.2 mmol/L (0.4-2.0)
[2018-04-12 15:05] LABS: BILIRUBIN,URINE NEGATIVE (NEG); CLARITY,URINE CLEAR; COLOR,URINE YELLOW; GLUCOSE,URINE NEGATIVE (NEG); NITRITE,URINE NEGATIVE (NEG); PROTEIN,URINE NEGATIVE (NEG-TRACE); UROBILINOGEN,URINE 0.2 mg/dL (0.2 mg/dL)
[2018-04-12 15:32] LABS: BACTERIA,URINE 0 /HPF (0-FEW); RBC,URINE 0 /HPF (0-2); SQUAMOUS EPITHELIAL CELL,UR MOD /LPF
[2018-04-12 15:33] LABS: HYALINE CASTS, URINE FEW /HPF
[2018-04-12] MEDS ORDERED: ONDANSETRON PF 4 MG/2 ML VIAL. IV (16:00)
[2018-04-12] MEDS ORDERED: NITROGLYCERIN SUBLINGUAL 0.4 MG BOTTLE OF 25. SL (16:00)
[2018-04-12] MEDS ORDERED: ACETAMINOPHEN 325 MG TABLET. PO (16:00)
[2018-04-12 19:09] LABS: TROPONINI < 0.017 ng/mL (0.000-0.055)
[2018-04-13 03:56] LABS: ADD MAN DIFF? NO
[2018-04-13 04:00] LABS: BASO % 1 % (0-3); EOS # 0.2 x10^3/uL (0.0-0.7); EOS % 5 % (0-3); HEMATOCRIT 32.8 % (36.0-47.0); HEMOGLOBIN 11.4 g/dL (12.0-15.5); LYMPH # 1.3 x10^3/uL (1.0-4.8); LYMPH % 39 % (24-48); MEAN CORPUSCULAR HEMOGLOBIN 33 pg (25-35); MEAN CORPUSCULAR HGB CONC 35 g/dL (31-37); MEAN CORPUSCULAR VOLUME 94 fL (79-100); MONO # 0.4 x10^3/uL (0.0-1.1); MONO % 13 % (0-9); NEUT # 1.4 x10^3uL (1.8-7.7); NEUT % 43 % (31-73); PLATELET COUNT 243 x10^3/uL (140-400); RED CELL DISTRIBUTION WIDTH 13.8 % (11.5-14.5); WHITE BLOOD COUNT 3.3 x10^3/uL (4.0-11.0)
[2018-04-13 04:19] LABS: AMYLASE 38 U/L (25-115); ANION GAP 6 (6-14); BLOOD UREA NITROGEN 8 mg/dL (7-20); CALCIUM 8.3 mg/dL (8.5-10.1); CARBON DIOXIDE 30 mmol/L (21-32); CHLORIDE 100 mmol/L (98-107); CREATININE 0.7 mg/dL (0.6-1.0); GFR 96.9; GLUCOSE 74 mg/dL (70-99); LIPASE 138 U/L (73-393); POTASSIUM 3.6 mmol/L (3.5-5.1); SODIUM 136 mmol/L (136-145)
[2018-04-13] MEDS: IV NORMAL SALINE 1000ML BAG 1,000 ML IV (09:56)
[2018-04-14] MEDS ORDERED: PANTOPRAZOLE 40 MG TABLET.DR. PO (07:30)
== END 2018-04-13 13:44 | disposition home or self-care (01) | DRG 392 ==
LOC: ER 13:39 → 5 NORTH 15:35
DX: K29.70 Gastritis, unspecified, without bleeding (principal); N39.0 Urinary tract infection, site not specified; E86.0 Dehydration; D86.9 Sarcoidosis, unspecified; I10 Essential (primary) hypertension; I77.810 Thoracic aortic ectasia; J43.9 Emphysema, unspecified; F41.9 Anxiety disorder, unspecified; G89.29 Other chronic pain; K80.20 Calculus of gallbladder without cholecystitis without obstruction; Z79.82 Long term (current) use of aspirin; Z85.3 Personal history of malignant neoplasm of breast; Z90.49 Acquired absence of other specified parts of digestive tract
CPT/HCPCS: 36415; 51701; 71045; 71046; 80048; 80053; 81001; 82150; 82553; 83605; 83690; 83735; 83880; 84443; 84484; 85025; 85610; 87086; 93005; 96360; 96361; 99285; 99285-25; J7030